=== PATIENT | female | born 1985 | race Caucasian/White ===

== ENCOUNTER 2020-12-01 21:34 | Inpatient (IN) | payer OTHER ==
[~2020-12-01] VITALS: Ht 160 cm; Wt 85.7 kg
[~2020-12-01 21:34] MED LIST: NEURONTIN 300300 MG PO; TYLENOL 325MG325 MG PO
[2020-12-02 00:40] LABS: HEMOGLOBIN 10.5 gm/dl (12.3-15.3); RED BLOOD COUNT 3.92 M/UL (4.00-5.10); WHITE BLOOD COUNT 11.8 K/UL (4.5-11.0)
[2020-12-02] MEDS ORDERED: COLACE 100MG C100 MG PO (02:57)
[2020-12-02] MEDS ORDERED: IBU600 MG PO (02:57)
[2020-12-03 09:19] LABS: HEMOGLOBIN 9.9 gm/dl (12.3-15.3)
[2020-12-03] MEDS ORDERED: MAPAP325 MG PO (13:06)
== END 2020-12-03 15:57 | disposition home or self-care (01) | DRG 806 ==
LOC: GENOP 21:34 → OB 23:23
PROVIDERS: ADMIT Obstetrics & Gynecology
PROC: 10E0XZZ Delivery of Products of Conception, External Approach (ICD-10-PCS; principal; 2020-12-02)
DX: O99.324 Drug use complicating childbirth (principal); O98.42 Viral hepatitis complicating childbirth; Z37.0 Single live birth; Z20.822 Contact with and (suspected) exposure to COVID-19; O98.32 Other infections with a predominantly sexual mode of transmission complicating childbirth; O99.354 Diseases of the nervous system complicating childbirth; B19.20 Unspecified viral hepatitis C without hepatic coma; Z3A.39 39 weeks gestation of pregnancy; O42.92 Full-term premature rupture of membranes, unspecified as to length of time between rupture and onset of labor; A56.8 Sexually transmitted chlamydial infection of other sites; G40.909 Epilepsy, unspecified, not intractable, without status epilepticus; Z28.21 Immunization not carried out because of patient refusal; O99.334 Smoking (tobacco) complicating childbirth; F17.210 Nicotine dependence, cigarettes, uncomplicated; F15.19 Other stimulant abuse with unspecified stimulant-induced disorder
CPT/HCPCS: 36415; 80307; 81001; 82800; 83518; 85014; 85018; 85025; 87635; G0378; J2590; J3010